=== PATIENT | female | born 1970 | race Caucasian/White ===

== ENCOUNTER → 2022-08-28 | Outpatient (CLI) | payer BC ==
--- NOTE | 2022-08-28 10:55 | CA ---
Exercise Stress Test Report Name: Nadeen Dee Exam Date: 08/28/2022 10:23 Exam Location: [facility] Ht (in): 64 Wt (lb): 167 BSA: 1.81 Ordering Phys: Angela Alex MD Referring Phys: GEMA, Technologist: DEYANIRA,, Age: 51 Gender: F : 1970 Procedure CPT: Indications: i10 ICD-10 Codes: Patient History: Short of breath Medications: Meds past 24 hrs: Pretest Chest Pain: STRESS TEST Alcides Protocol Exercise Duration (min:sec): 09:[address] Depressions (mm): Angina Score: Casper Score: Resting HR (bpm): 94 Peak HR (bpm): 160 Resting BP (mmHg): 131 / 83 Peak BP (mmHg): 170 / 82 MPHR: 169 Target HR: 144 % MPHR: 95 METS: 11.2 Total Dose: Peak Dose: Atropine: Double Product: 63282 BP Response: Stress Termination: TARGET HR REACHED/MAX EXERTION Stress Symptoms: NO SYMPTOMS Stress Summary: ECG ANALYSIS Resting ECG: Stress ECG: CONCLUSIONS Excellent exercise tolerance Normal EKG in response to exercise Dr. Phil Jeronimo MD (Electronically Signed) Final Date: 28 August 2022 10:54
--- NOTE | 2022-08-28 12:12 | NM ---
EXAMINATION TYPE: NM stress cardiolite complete DATE OF EXAM: 08/28/2022 COMPARISON: NONE HISTORY: Chest pain TECHNIQUE: After the intravenous administration of 9.7 mCi Tc 99m Sestamibi - Rest images obtained 4 5 minutes post injection. The patient exercised using a ABEL protocol and 1 minute prior to peak e xercise was injected with 25.2 mCi Tc 99m Sestamibi - Stress images obtained 15 minutes post injectio n. FINDINGS: Targeted heart rate was achieved during performance of the study. Review of stress and rest SPECT demetrio ges demonstrates no distinct perfusion abnormality. Gated analysis shows normal wall motion with an estimated left ventricular ejection fraction of 65 %. IMPRESSION: No scintigraphic evidence for reversible ischemia
== END | disposition home or self-care (01) ==
LOC: RADNMMAIN 08:00
PROVIDERS: ATTEND Family Medicine
DX: I25.10 Atherosclerotic heart disease of native coronary artery without angina pectoris (principal); I10 Essential (primary) hypertension
CPT/HCPCS: 93017; 78452; A9500

== ENCOUNTER → 2022-12-01 | Outpatient (CLI) | payer BC ==
--- NOTE | 2022-12-01 09:50 | MR ---
EXAMINATION TYPE: MR brain wo/w con DATE OF EXAM: 12/01/2022 COMPARISON: None HISTORY: Headaches, sinusitis TECHNIQUE: Multiplanar, multisequence images of the brain and brainstem is performed without and with IV contras t, utilizing 7.5 mL intravenous Gadavist . FINDINGS: Diffusion weighted images demonstrate no evidence of a recent infarct or other diffusion ab normality. There is scattered small focal areas of abnormal signal white matter bilaterally the larg est within the left frontal white matter measuring 6 mm. Findings are most likely on the basis of rem ote microvascular ischemia. Hypertension in the differential diagnosis. Cerebellar tonsils are low-lying in position measuring 2 mm below the foramen magnum. No tonsillar be aking.. The ventricular system and cisternal spaces are normal in size and appearance. The brain vo lume is age appropriate. Midline structures demonstrate normal morphology. The craniocervical junction appears within normal limits. Post contrast images demonstrate no abnormal enhancement. The dural venous sinuses appear patent. Mild changes of chronic sinusitis ethmoid air cells. Orbits a re symmetric. The normal vascular signal voids have a normal appearance. Multiple focal areas of abnormal signal se en within the basal ganglia bilaterally. Favor prominent Virchow Umer spaces over tiny lacunar infar ct. IMPRESSION: 1. Nonspecific white matter changes most typical remote microvascular ischemic disease. 2. Mild changes of chronic sinusitis. 3. Low-lying cerebellar tonsils measuring 2 mm below the foramen magnum. No tonsillar beaking.
== END | disposition home or self-care (01) ==
LOC: RADMRIMAIN 08:02
PROVIDERS: ATTEND Family Medicine
DX: I67.82 Cerebral ischemia (principal); G44.52 New daily persistent headache (NDPH); J32.2 Chronic ethmoidal sinusitis; I10 Essential (primary) hypertension; J35.8 Other chronic diseases of tonsils and adenoids; R90.82 White matter disease, unspecified
CPT/HCPCS: 70553; A9585

== ENCOUNTER → 2023-12-23 | Outpatient (CLI) | payer BC ==
[2023-12-23 12:07] VITALS: BP 117/81; PULSE 86; RESP 16; TEMP 98.5
--- NOTE | 2023-12-23 12:37 | P.SLEEP ---
History of Present Illness DATE: 12/23/2023 CONSULTATION/NEW PATIENT EVALUATION HISTORY OF PRESENT ILLNESS/SLEEP-WAKE EVALUATION: 53-year-old lady had been e valuated in the sleep center for possible obstructive sleep apnea hypopnea syndrome, leg movements at night and excessive daytime sleepiness. SLEEP SCHEDULE: Usually sleep schedule from 1011 PM until 56 AM on weekdays and until 811 AM on weekend. FALLING ASLEEP: Sometimes patient has difficulties with falling asleep, has TV set in bedroom. DURING SLEEP: Patient usually sleeps on the back and side position with loud snoring, grinding teeth, sleep talking, restless leg symptoms and significant amount of leg movements. Patient wakes up from sleep up to 2 times with 1 episode of nocturia. No history of hypnogogical hallucinations, sleep paralysis, or cataplexy. DURING THE DAY/WAKE STATE: In the morning patient wake up tired, has problems with memory and irritability.. [place] sleepiness scale is increased to 13. Patient may take naps on weekend at early afternoon time. PAST MEDICAL HISTORY: Hypertension, hypothyroidism, anxiety, depression. PAST SURGICAL HISTORY: Right knee partial replacement, bladder suspension, bilateral carpal tunnel syndrome surgery, right ankle reconstruction surgery. MEDICATIONS: Please see below. SOCIAL HISTORY: Please see below. FAMILY HISTORY: Heart problems, snoring, anxiety, diabetes, thyroid problems. REVIEW OF SYSTEMS: Loud snoring, multiple awakenings from sleep, sleepiness during the day, leg movements at night. No fevers. No double vision. No recent chest pain. No shortness of breath. No abdominal pain. No bleeding episodes. No blood in urine. No seizure episodes. PHYSICAL EXAMINATION: GENERAL: A pleasant patient without any distress. VITAL SIGNS: Please see below, weight 172 pounds, BMI 30.2. HEENT: PERRLA, EOMI. Evaluation of oropharynx showed tongue protrudes midline, low position of soft palate Mallampati 3. NECK: Supple. No JVD. Thyroid is not palpable. 13.5 inches in circumference. LUNGS: Clear to percussion and to auscultation. Good air exchange. No wheezing or rhonchi. HEART: S1, S2 regular. No murmurs, gallops or rubs. ABDOMEN: Soft and nontender. Bowel sounds are present. No organomegaly appreciated. EXTREMITIES: No clubbing or cyanosis. AGRICULTURAL RESEARCH ENGINEER: Awake, alert, and oriented x3. Cranial nerves 2 to 7 intact. There is no fasciculation or atrophy noted. No focal deficits observed. ASSESSMENT: 1. Loud snoring, awakenings from sleep, small oropharyngeal airspace, sleepiness with [place] Sleepiness Scale 13. Obstructive sleep apnea hypopnea syndrome. 2. Restless leg symptoms. 3. Significant amount of movements during the night, including kicking. Possibly periodic limb movements. 4. Hypertension. 5 hypothyroidism. 6 . History of anxiety. 7. History of depression. 8. Status post right knee partial replacement. 9 . Status post bilateral carpal tunnel syndrome surgery. 10. Status post right ankle reconstruction surgery. 11. Mild obesity, BMI 30.2. PLAN: 1. Polysomnography for evaluation of patient's breathing during sleep and to check for possible periodic limb movements. 2. Following plan after reading sleep study. 3. Preferable position during sleep on the side. 4. No driving if patient feels any sleepiness. Patient is aware of civil and criminal liability for unsafe driving. 5. Sleep hygiene with regular sleep time for at least 7.5-8 hours. 6. Watching and losing weight. Thank you very much for referring this patient for consultation. Sincerely, Bandar Gayle MD, PhD, FAASM. Diplomat of [place] [employer], Sleep Medicine Board by [place] [employer] [place] [employer] Wardrobe Coordinator of [facility] [place] Past Medical History Past Medical History: Hyperlipidemia, Hypertension, Thyroid Disorder History of Any Multi-Drug Resistant Organisms: None Reported Past Surgical History: Bladder Surgery, Orthopedic Surgery, Tubal Ligation Additional Past Surgical History / Comment(s): R ankle reconstructive , brest biopsy, carpal tunnel, partial rt knee Past Psychological History: Anxiety, Depression Smoking Status: Former smoker Past Alcohol Use History: Occasional Past Drug Use History: None Reported - Past Family History Father Family Medical History: Coronary Artery Disease (CAD) Additional Family Medical History / Comment(s): restless legs, snoring Mother Family Medical History: Diabetes Mellitus, Hyperlipidemia, Hypertension, Osteoarthritis (OA), Thyroid Disorder Additional Family Medical History / Comment(s): anxiety, snoring Medications and Allergies Home Medications Medication Instructions Recorded Confirmed Type Ascorbic Acid [Vitamin C] 1,650 mg PO DAILY 12/23/23 12/23/23 History Atorvastatin [Lipitor] 40 mg PO DAILY 12/23/23 12/23/23 History Glucosamine HCl/Chondroitin Doshi See Rx Instructions .ROUTE .COMPLEX 12/23/23 12/23/23 History [Glucosamine-Chondroitin Cap] L.acidoph,Paracasei, B.lactis 1 each PO DAILY 12/23/23 12/23/23 History [Probiotic] Levothyroxine Sodium [Synthroid] 88 mcg PO DAILY 12/23/23 12/23/23 History Lisinopril-Hctz 20-12.5 mg 1 each BID 12/23/23 12/23/23 History [Zestoretic 20-12.5] Magnesium Gluconate [Magonate] 400 mg PO DAILY 12/23/23 12/23/23 History Ubidecarenone [Co Q-10] 200 mg PO DAILY 12/23/23 12/23/23 History Venlafaxine HCl [Effexor] 100 mg PO BID 12/23/23 12/23/23 History Vitamin B Complex See Rx Instructions .ROUTE .COMPLEX 12/23/23 12/23/23 History Vitamin D3/Vitamin K2 (Mk4) 1 each PO DAILY 12/23/23 12/23/23 History [Vitamin K2 Plus D3 Tablet] Physical Exam Vitals: Vital Signs Temp Pulse Resp BP Pulse Ox 12/23/23 12:06 98.5 F 86 16 117/81 95 Intake and Output 12/22/23 12/23/23 12/23/23 22:59 06:59 14:59 Other: Weight 78.018 kg Sleep Note - Sleep Data ESS Total: 13 - Sleep Note Sleep Note: Temperature: 98.5 F Pulse Rate: 86 Respiratory Rate: 16 Blood Pressure: 117/81 SpO2: 95 Height: 5 ft 3.2 in Weight: 78.018 kg BMI: Neck Circumference: 13.5
== END ==
LOC: 3 N SLEEP 11:36
PROVIDERS: ATTEND Internal Medicine
DX: G47.33 Obstructive sleep apnea (adult) (pediatric) (principal); G25.81 Restless legs syndrome; I10 Essential (primary) hypertension; E03.9 Hypothyroidism, unspecified; F41.9 Anxiety disorder, unspecified; F32.A Depression, unspecified; E66.9 Obesity, unspecified; Z68.30 Body mass index [BMI] 30.0-30.9, adult; Z96.651 Presence of right artificial knee joint; Z98.890 Other specified postprocedural states; Z87.39 Personal history of other diseases of the musculoskeletal system and connective tissue; Z87.891 Personal history of nicotine dependence; Z79.899 Other long term (current) drug therapy; Z79.890 Hormone replacement therapy
CPT/HCPCS: 99211

== ENCOUNTER → 2024-01-07 | Outpatient (CLI) | payer BC ==
--- NOTE | 2024-01-10 10:59 | P.PCN ---
Description of Procedure: CLINICAL: A home sleep apnea test has been done for confirmation of possible obstructive sleep apnea-hypopnea syndrome. DESCRIPTION OF PROCEDURE: RESULTS: Recording time was 8 hours 53 minutes. Evaluation time was 8 hours 40 minutes. Evaluation time is sufficient for making conclusion about results of the test. Raw data of sleep recording has been reviewed and is adequate. Respiratory channel showed 9 apneas and 69 hypopneas. Apnea-hypopnea index was 9.0 per hour. Pulse rate in the range between minimum 52, maximum 98, average 71 by computer calculation. Lowest desaturation was 82%. IMPRESSION: 1. Obstructive Sleep Apnea Hypopnea Syndrome. 2. Hypertension. Please see other impressions from consultation. PLAN: 1. The patient will be started on auto-PAP treatment for correction of respiratory abnormallities during sleep. 2. I will see patient for follow up visit to discuss results of the test, evaluate clinical response on treatment with PAP therapy and make any necessary adjustments related to mask fitting, pressure, and humidification. 3. Watching weight. 4. Sleep hygiene with regular time in bed for at least 8 hours. 5. No driving if feeling any sleepiness. Thank you very much for allowing me to participate in the management of your patient. Sincerely, Bandar Gayle MD, PhD, FAASM Diplomat of [place] [employer] Sleep Medicine Board of [place] [employer] It Data Architect of [facility] [place] cc: Angela Alex MD
== END ==
LOC: 3 N SLEEP 10:32
PROVIDERS: ATTEND Internal Medicine
DX: G47.33 Obstructive sleep apnea (adult) (pediatric) (principal); I10 Essential (primary) hypertension; G47.61 Periodic limb movement disorder

== ENCOUNTER → 2024-04-27 | Outpatient (CLI) | payer BC ==
[2024-04-27 10:40] VITALS: BP 97/65; PULSE 98; RESP 16; TEMP 98.8
--- NOTE | 2024-04-27 11:04 | P.PROGSL ---
Subjective DATE: 04/27/2024 FOLLOW UP VISIT. Patient with obstructive sleep apnea hypopnea syndrome return to sleep center for follow-up visit. Recently patient had sleep study which documented obstructive sleep apnea hypopnea syndrome. Patient was initiated on PAP therapy and today is first visit after treatment was started. Patient was able to use PAP equipment every night for the whole night. The patient does not have significant problems with the mask, PAP pressure and humidification. [place] sleepiness scale is 8, which is in normal range. I checked information from PAP unit. PAP unit pressure 5-14, average 13.1 cm H2O. Usage is 97% and 80% for more then 4 hours, average 6.25 hours per night. Leak is 17.8 l/m, which is in acceptable range. Apnea Hypopnea Index is 2.5, which is normal. MEDICATIONS:1. Atorvastatin 40 mg once a day 2. Levothyroxine 88 mcg once a day 3. Lisinoprilhydrochlorothiazide 20-12.5 mg once a day 4. Venlafaxine 100 mg twice a day During physical exam: GENERAL: A pleasant patient without any distress. VITAL SIGNS: Please see below, weight 155 pounds. HEENT: PERRLA, EOMI.low position of soft palate, Mallapati 3. NECK: Supple. No JVD. LUNGS: Clear to percussion and to auscultation. Good air exchange. No wheezing or rhonchi. HEART: S1, S2 regular. ABDOMEN: Soft and nontender.[] EXTREMITIES: No clubbing or cyanosis. DIRECT MARKETING SPECIALIST: Awake, alert, and oriented x3. No focal deficit. Impressions: 1. Obstructive sleep apnea-hypopnea syndrome. Patient demonstrated great compliance with treatment, benefiting from treatment. 2. History of restless leg symptoms and possible periodic limb movements. No clinical complaints at the present time. We do not have information about leg movements, because patient had home sleep apnea test. 3. Hypertension. 4. Hypothyroidism. 5. History of anxiety. 6. History of depression. 7. Status post right knee partial replacement. 8. Status post right ankle reconstruction surgery. 9. Status post bilateral carpal tunnel syndrome surgery. Plan: 1. Continue using PAP equipment every night for the whole night. 2. To change air filter at least 1-2 times per month. 3. PAP unit should stay lower then position of the head. 4. Advised patient to remove all remaining water from humidifier canister daily and make it dry after each usage. Refill canister with fresh distilled water before each usage. 5. Sleep hygiene with regular time in bed for at least 8 hours. 6. Precautions related to driving. No driving if feel any sleepiness. 7. I will maintain prescription for PAP supplies including mask, tube, filters. 8. Follow up visit in 8 months or earlier if patient has any problems. 9. Watching weight. Thank you very much for allowing me to participate in the management of your patient. Bandar Gayle MD, PhD, FAASM. Diplomat of [place] [employer], Sleep Medicine Board by [place] [employer] It Technical Specialist of [facility] [place] Objective - Vital Signs Vital Signs: Vital Signs Temp 98.8 F 04/27/24 10:39 Pulse 98 04/27/24 10:39 Resp 16 04/27/24 10:39 BP 97/65 04/27/24 10:39 Pulse Ox 97 04/27/24 10:39 FiO2 Home Medications: Home Medications Medication Instructions Recorded Confirmed Type Ascorbic Acid [Vitamin C] 1,650 mg PO DAILY 12/23/23 12/23/23 History Atorvastatin [Lipitor] 40 mg PO DAILY 12/23/23 12/23/23 History Glucosamine HCl/Chondroitin Doshi See Rx Instructions .ROUTE .COMPLEX 12/23/23 12/23/23 History [Glucosamine-Chondroitin Cap] L.acidoph,Paracasei, B.lactis 1 each PO DAILY 12/23/23 12/23/23 History [Probiotic] Levothyroxine Sodium [Synthroid] 88 mcg PO DAILY 12/23/23 12/23/23 History Lisinopril-Hctz 20-12.5 mg 1 each BID 12/23/23 12/23/23 History [Zestoretic 20-12.5] Magnesium Gluconate [Magonate] 400 mg PO DAILY 12/23/23 12/23/23 History Ubidecarenone [Co Q-10] 200 mg PO DAILY 12/23/23 12/23/23 History Venlafaxine HCl [Effexor] 100 mg PO BID 12/23/23 12/23/23 History Vitamin B Complex See Rx Instructions .ROUTE .COMPLEX 12/23/23 12/23/23 History Vitamin D3/Vitamin K2 (Mk4) 1 each PO DAILY 12/23/23 12/23/23 History [Vitamin K2 Plus D3 Tablet]
== END ==
LOC: 3 N SLEEP 10:18
PROVIDERS: ATTEND Internal Medicine
DX: G47.33 Obstructive sleep apnea (adult) (pediatric) (principal); I10 Essential (primary) hypertension; E03.9 Hypothyroidism, unspecified; F41.9 Anxiety disorder, unspecified; F32.A Depression, unspecified; Z98.890 Other specified postprocedural states; Z96.651 Presence of right artificial knee joint; Z87.39 Personal history of other diseases of the musculoskeletal system and connective tissue; Z99.89 Dependence on other enabling machines and devices; Z79.890 Hormone replacement therapy; Z79.899 Other long term (current) drug therapy
CPT/HCPCS: 99212

== ENCOUNTER → 2024-07-18 | Outpatient (CLI) | payer BC ==
--- NOTE | 2024-07-18 12:50 | CTL ---
EXAMINATION TYPE: CT Low Dose Lung DATE OF EXAM: 07/18/2024 8:24 AM COMPARISON: None. SCREENING VISIT: Initial CT DIAGNOSTIC QUALITY: Satisfactory CLINICAL INDICATION: Female, 53 years old with history of F17.210 nicotine dependence, lung CA screen ing, Lung cancer screening, History of tobacco use. TECHNIQUE: Low dose computed tomography scan was performed through the chest at 1 mm thick sections a nd reconstructed images in the coronal plane at 1 mm thick sections. Contrast used: mL of , (none if empty) Oral contrast used: (none if empty) CT DLP: 95.8 mGycm, Automated exposure control for dose reduction was used. CT CTDI: 2.5 mGy, Automated exposure control for dose reduction was used. FINDINGS: LUNG NODULES: None. LUNGS: COPD: Severity: None Fibrosis: Severity: None Lymph nodes: None Other findings: None RIGHT PLEURAL SPACE: Effusion: None Calcification: None Thickening: None Pneumothorax: None LEFT PLEURAL SPACE: Effusion: None Calcification: None Thickening: None Pneumothorax: None HEART: Other: Ascending thoracic aorta at the level the main pulmonary artery measures 3.0 cm. The main pul monary artery at the bifurcation measures2.7 cm. Heart Size: Normal Coronary calcification: Mild Pericardial effusion: None OTHER FINDINGS: Upper abdomen: Normal Bony thorax: Normal Supraclavicular region: Normal IMPRESSION: No suspicious abnormality to suggest primary or metastatic neoplasm FOLLOW UP CT CHEST RECOMMENDATION: Follow-up low-dose CT chest one year CT LUNG RAD: Lung-Rad 1 [facility] Sesar Mcmahon, Workstation: [email or web address], 07/18/2024 12:48 PM
== END | disposition home or self-care (01) ==
LOC: RADCTMAIN 08:06
PROVIDERS: ATTEND Family Medicine
DX: Z12.2 Encounter for screening for malignant neoplasm of respiratory organs (principal); Z87.891 Personal history of nicotine dependence
CPT/HCPCS: 71271